=== PATIENT | male | born 1990 | race African-American/Black ===

== ENCOUNTER 2025-05-05 18:42 | Emergency (ER) | payer MEDICAID ==
[~2025-05-05] VITALS: Ht 180.3 cm; Wt 115.0 kg
[2025-05-05 19:02] VITALS: O2SAT 98
[2025-05-05 21:56] LABS: CLARITY URINE CLEAR (CLEAR); COLOR URINE DARK YELLOW (YELLOW); GLUCOSE URINE NEGATIVE (NEGATIVE); KETONES URINE TRACE (NEGATIVE); LEUKOCYTE ESTERASE URINE TRACE (NEGATIVE); NITRITE URINE NEGATIVE (NEGATIVE); OCCULT BLOOD URINE NEGATIVE (NEGATIVE); PH URINE 6.0 (4.5-8.0); PROTEIN URINE TRACE (NEGATIVE); SPECIFIC GRAVITY URINE 1.027 (1.005-1.030); UROBILINOGEN URINE 1.0 E.U./dL (0.2-1.0)
[2025-05-05 22:03] LABS: BASOPHILS % 0.7 % (0.0-2.0); EOSINOPHILS % 1.7 % (0.0-5.0); HEMATOCRIT. 51.4 % (42.0-52.0); HEMOGLOBIN. 16.8 g/dL (14.0-18.0); LYMPHOCYTES % 13.6 % (20.0-50.0); MEAN PLATELET VOLUME 7.5 fl (7.4-10.4); MONOCYTES % 9.5 % (2.0-8.0); NEUTROPHILS % 74.5 % (40.0-76.0); PLATELET 418 x1000/uL (130-400); RED BLOOD CELL COUNT 5.54 mill/uL (4.7-6.1); RED CELL DISTRIBUTION WIDTH 13.1 % (11.6-14.6)
[2025-05-05 22:09] LABS: BACTERIA URINE TRACE; RBC URINE NONE SEEN /hpf (0-2); SQUAMOUS EPITHELIAL CELL URINE RARE /lpf (RARE/1+)
[2025-05-05 22:13] LABS: CREATININE 1.1 mg/dL (0.6-1.3); UREA NITROGEN BLOOD 5 mg/dL (9-23)
[2025-05-05 22:14] LABS: PROTEIN TOTAL 8.2 g/dL (6.0-8.3)
[2025-05-05 22:15] LABS: ASPARTATE AMINOTRANSFERASE 30 IU/L (<34); BILIRUBIN DIRECT 0.3 mg/dL (<=3.0); BILIRUBIN TOTAL 0.9 mg/dL (0.1-1.0)
[2025-05-05 22:18] LABS: MONOTEST NEGATIVE (NEGATIVE)
[2025-05-06] MEDS ORDERED: IBUP-1455 MT (00:01)
[2025-05-06] MEDS ORDERED: DOXY100T2 MT (00:01)
[2025-05-06] MEDS ORDERED: BENZ1LOZ73 MM (00:01)
[2025-05-06] MEDS: PENICILLIN G BENZATHINE 2,400,000 UNITS/4ML SYR IM ONE (00:31)
[2025-05-06] MEDS: CEFTRIAXONE SODIUM 500MG VIAL IM ONE (00:31)
[2025-05-06] MEDS: LIDOCAINE HCL 1% 20ML VIAL INFIL ONE (00:40)
[2025-05-06 00:41] VITALS: BP 145/87; PULSE 100; RESP 14; TEMP 36.8; O2SAT 100
[2025-05-06] MEDS ORDERED: BICT1TAB PO (19:12)
[2025-05-06] MEDS ORDERED: VALA500T55 MT (19:12)
[2025-05-08 05:09] LABS: CHLAMYDIA TRACHOMATIS NAA Negative (Negative); NEISSERIA GONORRHOEAE NAA Negative (Negative)
== END 2025-05-06 00:43 | disposition home or self-care (01) ==
LOC: ER 19:02
DX: R21 Rash and other nonspecific skin eruption (principal); J02.9 Acute pharyngitis, unspecified; Z11.3 Encounter for screening for infections with a predominantly sexual mode of transmission
CPT/HCPCS: 99284; 86593; 86592; 87491; 87591; 80076; 80048; 81003; 85025; 86308; 36415; 96372; J0561; J0696; J2003